=== PATIENT | male | born 1990 | race Caucasian/White ===

== ENCOUNTER 2019-11-14 16:43 | Outpatient (CLI) | payer BC, SELFPAY ==
--- NOTE | ~2019-11-14 | CT_ITS ---
EXAMINATION: CT soft tissue neck w con DATE: 11/14/2019 17:35 INDICATION: Right neck pain. Soft tissue disorder. TECHNIQUE: Computed tomography (CT) of the neck was performed with 75 mL Omnipaque-350 intravenous co ntrast. Automated exposure control and iterative reconstruction technique were employed. The dose-rolando gth product was 466.34 mGy-cm. COMPARISON: Thyroid ultrasound 03/16/2019 FINDINGS: There are no pathologically enlarged lymph nodes. No abnormal mass. The adenoids, palatine tonsils, and epiglottis are normal. The neck vessels are normal. The parotid glands are normal. 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 IMPRESSION: 1. No specific etiology for the patient's symptoms. Reviewed, dictated and finalized at location E.
== END 2019-11-14 16:44 | disposition home or self-care (01) ==
PROVIDERS: PCP Emergency Medicine; Visit Provider Emergency Medicine
DX: M79.9 Soft tissue disorder, unspecified (principal)
CPT/HCPCS: 70491; Q9967